=== PATIENT | female | born 1955 | race Two or more races ===

== ENCOUNTER 2018-08-23 16:41 | Emergency (ER) | payer BC ==
[~2018-08-23] VITALS: Ht 175.3 cm; Wt 90.7 kg
[2018-08-23] MEDS ORDERED: DIVALPROEX SOD500 M1 PO (17:20)
[2018-08-23] MEDS ORDERED: LEVOXYL50 MCG (17:20)
[2018-08-23] MEDS ORDERED: [UNRECOGNIZED DRUG - OTHER] IM (17:21)
[2018-08-23] MEDS ORDERED: ATENOLOL25 MG PO (17:21)
[2018-08-23] MEDS ORDERED: KETOCONAZOLE120 ML TP (17:21)
[2018-08-23] MEDS ORDERED: METROGEL-VAGINA70 GM VAG (17:22)
[2018-08-23] MEDS ORDERED: ATOVAQUONE-PRO1 EAC1 PO (17:22)
[2018-08-23] MEDS ORDERED: AMOXICILLIN400 MG (17:22)
[2018-08-23] MEDS ORDERED: DESOWEN60 GM TP (17:23)
== END 2018-08-23 19:31 | disposition home or self-care (01) ==
LOC: ER 16:41
DX: N20.0 Calculus of kidney (principal); K57.90 Diverticulosis of intestine, part unspecified, without perforation or abscess without bleeding